=== PATIENT | male | born 1995 | race Two or more races ===

== ENCOUNTER 2021-06-08 01:01 | Emergency (ER) | payer OTHER ==
[~2021-06-08] VITALS: Ht 170.2 cm; Wt 74.8 kg
[2021-06-08 01:02] VITALS: BP 149/84
== END 2021-06-08 05:48 | disposition home or self-care (01) ==
LOC: ER 01:01
DX: S43.102A Unspecified dislocation of left acromioclavicular joint, initial encounter (principal); W18.39XA Other fall on same level, initial encounter; Y93.23 Activity, snow (alpine) (downhill) skiing, snowboarding, sledding, tobogganing and snow tubing; Y92.89 Other specified places as the place of occurrence of the external cause; Y99.8 Other external cause status
CPT/HCPCS: 73030